=== PATIENT | female | born 1980 | race African-American/Black ===

== ENCOUNTER 2023-02-23 18:30 | Outpatient (CLI) | payer BC | END 2023-02-23 18:31 | disposition home or self-care (01) | LOC: SLEEPLAB 18:30 | PROVIDERS: ATTEND Student in an Organized Health Care Education/Training Program | DX: G47.9 Sleep disorder, unspecified (principal); F41.9 Anxiety disorder, unspecified; E66.9 Obesity, unspecified; R06.83 Snoring; R53.83 Other fatigue; G47.00 Insomnia, unspecified | CPT/HCPCS: 95800 ==

== ENCOUNTER 2025-07-14 14:04 | Outpatient (CLI) | payer BC | END 2025-07-14 14:05 | disposition home or self-care (01) | LOC: MRI 14:04 | PROVIDERS: ATTEND Orthopaedic Surgery | DX: M51.16 Intervertebral disc disorders with radiculopathy, lumbar region (principal); M47.26 Other spondylosis with radiculopathy, lumbar region; M51.17 Intervertebral disc disorders with radiculopathy, lumbosacral region; M47.27 Other spondylosis with radiculopathy, lumbosacral region; M48.07 Spinal stenosis, lumbosacral region | CPT/HCPCS: 72148 ==